=== PATIENT | male | born 1970 | race Caucasian/White ===

== ENCOUNTER 2022-08-29 17:51 | Inpatient (IN) | payer OTHER ==
[~2022-08-29] VITALS: Ht 185.4 cm; Wt 86.2 kg
[2022-08-29] MEDS ORDERED: LISINOPRIL2.5 MG PO (19:39)
[2022-08-29] MEDS ORDERED: ROSUVASTATIN CA10 MG PO (19:39)
[2022-08-29] MEDS ORDERED: TRESIBA FL200 UNIT/1 SQ (19:39)
[2022-08-29] MEDS ORDERED: FARXIGA10 MG PO (19:39)
[2022-08-29 20:08] VITALS: BP 123/85; PULSE 99; RESP 20; TEMP 98.5; O2SAT 100
[2022-08-29] MEDS ORDERED: BISMUTH SUBSALICYLATE 262 MG TAB PO SCH (21:00)
[2022-08-29 21:01] VITALS: BP 123/85; PULSE 91; RESP 20; TEMP 98.5; O2SAT 100
[2022-08-29] MEDS: HYDROCODONE/APAP 5MG-325MG TAB PO PRN (21:08)
[2022-08-30] MEDS ORDERED: SODIUM CHLORIDE 0.9% 250ML 250 ML ONE (00:18)
[2022-08-30 01:08] VITALS: BP 138/83; PULSE 98; RESP 20; TEMP 98.2; O2SAT 95
[2022-08-30 04:55] LABS: BASOPHILS # (AUTO) 0.1 (0.0-0.1); BASOPHILS % 1.1 % (0.0-1.0); EOSINOPHILS # (AUTO) 0.1 (0.0-0.4); EOSINOPHILS % 1.6 % (0.0-6.0); HEMATOCRIT 39.6 % (38.2-49.6); HEMOGLOBIN 12.4 g/dL (14.0-18.0); LYMPHOCYTES # (AUTO) 2.2 (1.0-3.2); LYMPHOCYTES % 39.7 % (18.0-39.1); MEAN CORPUSCULAR HEMOGLOBIN 28.9 pg (28-32); MEAN CORPUSCULAR HGB CONC 31.3 g/dL (31-35); MEAN CORPUSCULAR VOLUME 92.3 fL (81-99); MONOCYTES # (AUTO) 0.6 (0.2-0.8); MONOCYTES % 9.9 % (4.4-11.3); NEUTROPHILS # (AUTO) 2.6 (2.1-6.9); NEUTROPHILS % 46.1 % (38.7-80.0); PLATELET COUNT 248 x10e3/uL (140-360); RED BLOOD COUNT 4.29 x10e6/uL (4.3-5.7); RED CELL DISTRIBUTION WIDTH 12.6 % (11.7-14.4)
[2022-08-30 04:58] VITALS: BP 117/83; PULSE 93; RESP 20; TEMP 98; O2SAT 99
[2022-08-30 05:17] LABS: ALBUMIN 3.1 g/dL (3.5-5.0); ALBUMIN/GLOBULIN RATIO 0.7 (0.8-2.0); ANION GAP 20.5 mmol/L (8-16); CALCIUM 9.5 mg/dL (8.4-10.2); CREATININE, SERUM 1.22 mg/dL (0.72-1.25); POTASSIUM 4.5 mmol/L (3.5-5.1)
[2022-08-30] MEDS ORDERED: NEOSTIGMINE 1 MG/ML 10ML VIAL ONE (06:50)
[2022-08-30] MEDS ORDERED: DEXAMETHASONE SOD PHOS INJ 4 MG/ML SDV ONE (06:50)
[2022-08-30] MEDS ORDERED: BUPIVACAINE HCL 0.5% INJ 30 ML VIAL INJ ONE (06:50)
[2022-08-30] MEDS ORDERED: ACETAMINOPHEN 1000 MG/100 ML 100 ML IV ONE (07:13)
[2022-08-30 08:00] VITALS: BP_SYST 113; BP_SYST 117; BP_DIAS 75; BP_DIAS 83; PULSE 86; PULSE 93; RESP 18; RESP 20; TEMP 98; TEMP 98.5; O2SAT 98; O2SAT 99
[2022-08-30] MEDS ORDERED: BISMUTH SUBSALICYLATE 262 MG/15 ML 8OZ BTL PO PRN (08:15)
[2022-08-30] MEDS ORDERED: DEXTROSE 50% SYRINGE 50 ML IV PRN (09:45)
[2022-08-30] MEDS ORDERED: KETOROLAC TROMETHAMINE 30 MG/ML VIAL ONE (11:49)
[2022-08-30] MEDS ORDERED: SEVOFLURANE INHAL SOLN 250 ML PEN BTL ONE (11:49)
[2022-08-30] MEDS ORDERED: POVIDONE IODINE 0.05% 0.05 % ML PO ONE (11:49)
[2022-08-30] MEDS ORDERED: ONDANSETRON HCL INJ 2MG/ML 2ML 2 MG/ML VIAL ONE (11:49)
[2022-08-30] MEDS ORDERED: PROPOFOL IV EMULSION 10 MG/ML 20 ML VIAL ONE (11:49)
[2022-08-30] MEDS ORDERED: LIDOCAINE HCL 2% LOCAL INJ 5 ML SDV VIAL INJ ONE (11:49)
[2022-08-30 11:56] VITALS: BP 102/70; PULSE 92; RESP 16; TEMP 97.8; O2SAT 97
[2022-08-30] MEDS: HYDROCODONE/APAP 5MG-325MG TAB PO PRN ×2 (12:53→21:10)
[2022-08-30] MEDS: INSULIN LISPRO 100 UNIT/1 ML 3ML VIAL SQ SCH ×3 (12:55→22:33)
[2022-08-30] MEDS ORDERED: FENTANYL CITRATE/PF 100MCG/2 ML INJ ONE (12:56)
[2022-08-30 17:22] VITALS: BP 120/78; PULSE 93; RESP 16; TEMP 98.2; O2SAT 99
[2022-08-30 20:50] VITALS: BP 120/78; PULSE 93; RESP 16; TEMP 98.2; O2SAT 99
[2022-08-30] MEDS: CRESTOR 10MG PO SCH (21:00)
[2022-08-30] MEDS: LISINOPRIL 2.5 MG TAB PO SCH (21:00)
[2022-08-31] VITALS (8 sets, daily range): BP systolic 110–125; BP diastolic 75–83; PULSE 93–98; RESP 16–20; TEMP 98–99.2; O2SAT 95–100
[2022-08-31] MEDS: INSULIN LISPRO 100 UNIT/1 ML 3ML VIAL SQ SCH ×4 (09:32→22:17)
[2022-08-31] MEDS: CEFTRIAXONE 2 GM in SODIUM CHLORIDE 0.9% 100 ML IV SCH (11:50)
[2022-08-31] MEDS: HYDROCODONE/APAP 5MG-325MG TAB PO PRN (12:16)
[2022-08-31] MEDS: CRESTOR 10MG PO SCH (21:00)
[2022-08-31] MEDS: LISINOPRIL 2.5 MG TAB PO SCH (21:00)
[2022-09-01] VITALS (9 sets, daily range): BP systolic 113–130; BP diastolic 75–95; PULSE 59–103; RESP 17–20; TEMP 97.6–98.7; O2SAT 98–100
[2022-09-01] MEDS: CEFTRIAXONE 2 GM in SODIUM CHLORIDE 0.9% 100 ML IV SCH (09:25)
[2022-09-01] MEDS: INSULIN LISPRO 100 UNIT/1 ML 3ML VIAL SQ SCH ×4 (09:30→21:12)
[2022-09-01] MEDS: Ampicillin INJ 2 GM in SODIUM CHLORIDE 0.9% 100 ML IV SCH ×2 (17:19→21:03)
[2022-09-01] MEDS ORDERED: SODIUM CHLORIDE 0.9% 100 ML ONE (20:48)
[2022-09-01] MEDS: LISINOPRIL 2.5 MG TAB PO SCH (21:00)
[2022-09-01] MEDS: CRESTOR 10MG PO SCH (21:00)
[2022-09-02] VITALS (8 sets, daily range): BP systolic 109–126; BP diastolic 78–86; PULSE 88–102; RESP 17–22; TEMP 97.3–98.7; O2SAT 93–100
[2022-09-02] MEDS: Ampicillin INJ 2 GM in SODIUM CHLORIDE 0.9% 100 ML IV SCH ×4 (03:26→21:07)
[2022-09-02] MEDS: INSULIN LISPRO 100 UNIT/1 ML 3ML VIAL SQ SCH ×4 (08:40→20:58)
[2022-09-02] MEDS: HYDROCODONE/APAP 5MG-325MG TAB PO PRN (08:51)
[2022-09-02] MEDS: CRESTOR 10MG PO SCH (20:52)
[2022-09-02] MEDS: LISINOPRIL 2.5 MG TAB PO SCH (20:53)
[2022-09-02] MEDS ORDERED: INSULIN GLARGINE 100 UNITS/ML VIAL SQ SCH (21:00)
[2022-09-02] MEDS: ZOLPIDEM TARTRATE 10 MG TAB PO PRN (21:05)
[2022-09-03] VITALS (9 sets, daily range): BP systolic 111–130; BP diastolic 75–83; PULSE 83–90; RESP 17–18; TEMP 97–98.5; O2SAT 96–99
[2022-09-03] MEDS: Ampicillin INJ 2 GM in SODIUM CHLORIDE 0.9% 100 ML IV SCH ×4 (05:21→20:10)
[2022-09-03 06:01] LABS: BASOPHILS # (AUTO) 0.1 (0.0-0.1); BASOPHILS % 0.9 % (0.0-1.0); EOSINOPHILS # (AUTO) 0.1 (0.0-0.4); EOSINOPHILS % 1.8 % (0.0-6.0); HEMATOCRIT 37.2 % (38.2-49.6); HEMOGLOBIN 12.2 g/dL (14.0-18.0); LYMPHOCYTES # (AUTO) 2.6 (1.0-3.2); LYMPHOCYTES % 37.9 % (18.0-39.1); MEAN CORPUSCULAR HEMOGLOBIN 29.5 pg (28-32); MEAN CORPUSCULAR HGB CONC 32.8 g/dL (31-35); MEAN CORPUSCULAR VOLUME 90.1 fL (81-99); MONOCYTES # (AUTO) 0.6 (0.2-0.8); MONOCYTES % 8.6 % (4.4-11.3); NEUTROPHILS # (AUTO) 3.4 (2.1-6.9); NEUTROPHILS % 50.5 % (38.7-80.0); PLATELET COUNT 231 x10e3/uL (140-360); RED BLOOD COUNT 4.13 x10e6/uL (4.3-5.7); RED CELL DISTRIBUTION WIDTH 12.7 % (11.7-14.4)
[2022-09-03 06:19] LABS: ANION GAP 15.1 mmol/L (8-16); CALCIUM 9.1 mg/dL (8.4-10.2); CREATININE, SERUM 0.82 mg/dL (0.72-1.25); POTASSIUM 4.1 mmol/L (3.5-5.1)
[2022-09-03] MEDS: CEFTRIAXONE 2 GM in SODIUM CHLORIDE 0.9% 100 ML IV SCH (08:07)
[2022-09-03] MEDS: INSULIN LISPRO 100 UNIT/1 ML 3ML VIAL SQ SCH ×4 (08:14→20:15)
[2022-09-03] MEDS: LISINOPRIL 2.5 MG TAB PO SCH (20:11)
[2022-09-03] MEDS: CRESTOR 10MG PO SCH (20:11)
[2022-09-03] MEDS: INSULIN GLARGINE 100 UNITS/ML VIAL SQ SCH (20:17)
[2022-09-03] MEDS: ZOLPIDEM TARTRATE 10 MG TAB PO PRN (23:07)
[2022-09-04] VITALS (8 sets, daily range): BP systolic 111–125; BP diastolic 74–86; PULSE 75–86; RESP 16–18; TEMP 97.9–98.4; O2SAT 96–100
[2022-09-04] MEDS: Ampicillin INJ 2 GM in SODIUM CHLORIDE 0.9% 100 ML IV SCH ×4 (03:47→21:17)
[2022-09-04] MEDS: CEFTRIAXONE 2 GM in SODIUM CHLORIDE 0.9% 100 ML IV SCH (07:58)
[2022-09-04] MEDS: INSULIN LISPRO 100 UNIT/1 ML 3ML VIAL SQ SCH ×4 (08:05→22:04)
[2022-09-04] MEDS: CRESTOR 10MG PO SCH (21:17)
[2022-09-04] MEDS: LISINOPRIL 2.5 MG TAB PO SCH (21:18)
[2022-09-04] MEDS: INSULIN GLARGINE 100 UNITS/ML VIAL SQ SCH (22:04)
[2022-09-04] MEDS: ZOLPIDEM TARTRATE 10 MG TAB PO PRN (22:10)
[2022-09-05] VITALS: BP 111/73; PULSE 84; RESP 18; TEMP 98.6; O2SAT 100
[2022-09-05] MEDS: Ampicillin INJ 2 GM in SODIUM CHLORIDE 0.9% 100 ML IV SCH ×4 (03:13→22:18)
[2022-09-05 04:00] VITALS: BP 128/84; PULSE 87; RESP 17; TEMP 98.2; O2SAT 100
[2022-09-05] MEDS: INSULIN LISPRO 100 UNIT/1 ML 3ML VIAL SQ SCH ×4 (07:30→22:27)
[2022-09-05] MEDS: CEFTRIAXONE 2 GM in SODIUM CHLORIDE 0.9% 100 ML IV SCH (09:15)
[2022-09-05 09:21] VITALS: BP 114/80; PULSE 85; RESP 16; TEMP 98.4; O2SAT 97
[2022-09-05] MEDS: HYDROCODONE/APAP 5MG-325MG TAB PO PRN (10:37)
[2022-09-05 12:03] VITALS: BP 108/78; PULSE 76; RESP 20; TEMP 98.8; O2SAT 99
[2022-09-05 16:40] VITALS: BP 115/85; PULSE 84; RESP 18; TEMP 97.9; O2SAT 99
[2022-09-05 20:00] VITALS: BP 113/74; PULSE 74; RESP 17; TEMP 98.2; O2SAT 100
[2022-09-05] MEDS: LISINOPRIL 2.5 MG TAB PO SCH (22:16)
[2022-09-05] MEDS: CRESTOR 10MG PO SCH (22:17)
[2022-09-05] MEDS: INSULIN GLARGINE 100 UNITS/ML VIAL SQ SCH (22:28)
[2022-09-05] MEDS: ZOLPIDEM TARTRATE 10 MG TAB PO PRN (22:33)
[2022-09-05] MEDS ORDERED: HYDROCODONE/APAP 5MG-325MG TAB PO PRN (23:45)
[2022-09-06] VITALS: BP 110/80; PULSE 89; RESP 17; TEMP 98.9; O2SAT 100
[2022-09-06] MEDS: Ampicillin INJ 2 GM in SODIUM CHLORIDE 0.9% 100 ML IV SCH ×3 (02:39→14:51)
[2022-09-06 04:00] VITALS: BP 115/78; PULSE 77; RESP 17; TEMP 98.3; O2SAT 98
[2022-09-06] MEDS ORDERED: SODIUM CHLORIDE 0.9% 100 ML ONE (07:32)
[2022-09-06 08:18] VITALS: BP 110/75; PULSE 79; RESP 23; TEMP 97.9; O2SAT 100
[2022-09-06] MEDS: CEFTRIAXONE 2 GM in SODIUM CHLORIDE 0.9% 100 ML IV SCH (08:38)
[2022-09-06] MEDS: INSULIN LISPRO 100 UNIT/1 ML 3ML VIAL SQ SCH ×3 (08:51→16:54)
[2022-09-06 09:00] VITALS: BP 110/75; PULSE 79; RESP 23; TEMP 97.9; O2SAT 100
[2022-09-06 12:07] VITALS: BP 116/77; PULSE 77; RESP 23; TEMP 98; O2SAT 100
[2022-09-06 16:00] VITALS: BP 108/80; PULSE 76; RESP 22; TEMP 98.4; O2SAT 97
[2022-09-06] MEDS ORDERED: AMOXICILLIN500 MG PO (16:18)
== END 2022-09-06 17:59 | disposition home or self-care (01) | DRG 504 ==
LOC: MED/SURG2 17:51
PROVIDERS: ADMIT Internal Medicine; ATTEND Internal Medicine
PROC: 0SBN0ZZ Excision of Left Metatarsal-Phalangeal Joint, Open Approach (ICD-10-PCS; 2022-08-30)
PROC: 02HV33Z Insertion of Infusion Device into Superior Vena Cava, Percutaneous Approach (ICD-10-PCS; principal; 2022-08-30 07:30)
DX: M86.9 Osteomyelitis, unspecified (principal); E11.52 Type 2 diabetes mellitus with diabetic peripheral angiopathy with gangrene; I96 Gangrene, not elsewhere classified; E11.69 Type 2 diabetes mellitus with other specified complication; B95.2 Enterococcus as the cause of diseases classified elsewhere; I10 Essential (primary) hypertension; E11.40 Type 2 diabetes mellitus with diabetic neuropathy, unspecified; E78.5 Hyperlipidemia, unspecified
CPT/HCPCS: 36415; 36569; 71045; 71046; 80048; 80053; 82948; 85025; 87071; 87075; 87186; 87205; 88304; 93005; 96372; 97605; 99252; J0690; J0696; J1100; J1815; J1885; J2001; J2405; J2543; J2710; J7050

== ENCOUNTER 2022-09-22 15:18 | Inpatient (IN) | payer OTHER ==
[~2022-09-22] VITALS: Ht 185.4 cm; Wt 99.8 kg
[2022-09-22] VITALS (14 sets, daily range): BP systolic 100–129; BP diastolic 63–77; PULSE 95–110; RESP 9–16; TEMP 98.5; O2SAT 84–100
[~2022-09-22 15:18] MED LIST: AMOXICILLIN500 MG PO; FARXIGA10 MG PO; LISINOPRIL2.5 MG PO; ROSUVASTATIN CA10 MG PO; TRESIBA FL200 UNIT/1 SQ
[2022-09-22] MEDS ORDERED: ONDANSETRON HCL INJ 2MG/ML 2ML 2 MG/ML VIAL IV PRN (18:30)
[2022-09-22] MEDS ORDERED: MAGNESIUM SULF 1GRAM/DEXTROSE 100 ML IV PRN (18:45)
[2022-09-22] MEDS: SODIUM CHLORIDE 0.9% 1000ML 1,000 ML IV SCH ×2 (18:45→22:45)
[2022-09-22] MEDS ORDERED: ACETAMINOPHEN 325 MG TAB PO PRN (18:45)
[2022-09-22] MEDS: INSULIN REGULAR, HUMAN 3ML VL 100 UNIT in SODIUM CHLORIDE 0.9% 100 ML IV SCH ×2 (19:00)
[2022-09-22 19:44] LABS: ALBUMIN 3.3 g/dL (3.5-5.0); ALBUMIN/GLOBULIN RATIO 0.9 (0.8-2.0); ANION GAP 25.2 mmol/L (8-16); CALCIUM 8.7 mg/dL (8.4-10.2); CREATININE, SERUM 1.46 mg/dL (0.72-1.25); POTASSIUM 4.2 mmol/L (3.5-5.1)
[2022-09-22] MEDS: DEXTROSE 5%/0.45% SOD CHL 1,000 ML IV SCH (20:30)
[2022-09-22] MEDS: CEFTRIAXONE 2 GM in SODIUM CHLORIDE 0.9% 100 ML IV SCH (20:43)
[2022-09-22 23:09] LABS: ANION GAP 17.7 mmol/L (8-16); CALCIUM 8.5 mg/dL (8.4-10.2); CREATININE, SERUM 1.5 mg/dL (0.72-1.25); MAGNESIUM 2.1 MG/DL (1.3-2.1); POTASSIUM 3.7 mmol/L (3.5-5.1)
[2022-09-23] VITALS (30 sets, daily range): BP systolic 100–125; BP diastolic 58–83; PULSE 73–95; RESP 6–18; TEMP 97.7–98.2; O2SAT 97–100
[2022-09-23] MEDS ORDERED: LIDOCAINE 4% PATCH TP PRN (00:15)
[2022-09-23] MEDS ORDERED: DOCUSATE SODIUM 100 MG CAP PO PRN (00:15)
[2022-09-23] MEDS ORDERED: DIPHENHYDRAMINE HCL 25 MG CAP PO PRN (00:15)
[2022-09-23] MEDS ORDERED: POTASSIUM CHLORIDE 20 MEQ TAB CR PO PRN (00:15)
[2022-09-23] MEDS ORDERED: BENZONATATE 100 MG CAP PO PRN (00:15)
[2022-09-23] MEDS ORDERED: SIMETHICONE 80 MG CHEW PO PRN (00:15)
[2022-09-23] MEDS ORDERED: HYDRALAZINE HCL 20 MG/ML VIAL IV PRN (00:15)
[2022-09-23] MEDS ORDERED: ALBUTEROL/IPRATROPIUM 3 ML NEB NEB PRN (00:15)
[2022-09-23] MEDS ORDERED: DEXTROSE 50% SYRINGE 50 ML IV PRN (00:15)
[2022-09-23] MEDS: INSULIN REGULAR, HUMAN 3ML VL 100 UNIT in SODIUM CHLORIDE 0.9% 100 ML IV SCH ×4 (00:56→19:27)
[2022-09-23] MEDS: SODIUM CHLORIDE 0.9% 1000ML 1,000 ML IV SCH ×6 (02:45→21:59)
[2022-09-23 03:08] LABS: ANION GAP 13.1 mmol/L (8-16); CALCIUM 7.5 mg/dL (8.4-10.2); CREATININE, SERUM 1.29 mg/dL (0.72-1.25); MAGNESIUM 1.8 MG/DL (1.3-2.1); POTASSIUM 3.1 mmol/L (3.5-5.1)
[2022-09-23 03:53] LABS: ANION GAP 13.3 mmol/L (8-16); CALCIUM 8.5 mg/dL (8.4-10.2); CREATININE, SERUM 1.27 mg/dL (0.72-1.25); POTASSIUM 3.3 mmol/L (3.5-5.1)
[2022-09-23] MEDS: DEXTROSE 5%/0.45% SOD CHL 1,000 ML IV SCH ×5 (04:45→23:39)
[2022-09-23] MEDS ORDERED: HYDROCODONE/APAP 7.5MG-325MG 1 EA TAB PO PRN (06:00)
[2022-09-23] MEDS: HYDROCODONE/APAP 7.5MG-325MG 1 EA TAB PO PRN (06:06)
[2022-09-23 07:04] LABS: CHOL/HDL RATIO 10.9 (3.9-4.7); MAGNESIUM 1.8 MG/DL (1.3-2.1); PHOSPHORUS 1.2 MG/DL (2.3-4.7)
[2022-09-23 07:05] LABS: ANION GAP 13.3 mmol/L (8-16); CALCIUM 8.5 mg/dL (8.4-10.2); CREATININE, SERUM 1.13 mg/dL (0.72-1.25); MAGNESIUM 1.9 MG/DL (1.3-2.1); POTASSIUM 3.3 mmol/L (3.5-5.1)
[2022-09-23 07:29] LABS: THYROID STIMULATING HORMONE 3.504 uIU/mL (0.350-4.940)
[2022-09-23] MEDS: CEFTRIAXONE 2 GM in SODIUM CHLORIDE 0.9% 100 ML IV SCH (08:02)
[2022-09-23] MEDS: PANTOPRAZOLE SOD 40 MG TABEC PO SCH (08:02)
[2022-09-23] MEDS ORDERED: CEFTRIAXONE 2 GM in SODIUM CHLORIDE 0.9% 100 ML IV SCH (09:00)
[2022-09-23] MEDS: POTASSIUM CHLORIDE 20MEQ/100ML 100 ML IV PRN ×3 (09:08→21:03)
[2022-09-23 12:45] LABS: ANION GAP 11.6 mmol/L (8-16); CALCIUM 8.4 mg/dL (8.4-10.2); CREATININE, SERUM 1.03 mg/dL (0.72-1.25); MAGNESIUM 1.8 MG/DL (1.3-2.1); POTASSIUM 3.6 mmol/L (3.5-5.1)
[2022-09-23 13:16] LABS: BASOPHILS % 0.2 % (0.0-1.0); EOSINOPHILS # (AUTO) 0.5 (0.0-0.4); EOSINOPHILS % 7.8 % (0.0-6.0); HEMATOCRIT 37.1 % (38.2-49.6); HEMOGLOBIN 12.3 g/dL (14.0-18.0); LYMPHOCYTES # (AUTO) 1.2 (1.0-3.2); LYMPHOCYTES % 20.7 % (18.0-39.1); MEAN CORPUSCULAR HEMOGLOBIN 29.6 pg (28-32); MEAN CORPUSCULAR HGB CONC 33.2 g/dL (31-35); MEAN CORPUSCULAR VOLUME 89.2 fL (81-99); MONOCYTES # (AUTO) 0.7 (0.2-0.8); MONOCYTES % 12.5 % (4.4-11.3); NEUTROPHILS # (AUTO) 3.5 (2.1-6.9); NEUTROPHILS % 58.6 % (38.7-80.0); PLATELET COUNT 145 x10e3/uL (140-360); RED BLOOD COUNT 4.16 x10e6/uL (4.3-5.7); RED CELL DISTRIBUTION WIDTH 14.6 % (11.7-14.4)
[2022-09-23] MEDS: ONDANSETRON HCL INJ 2MG/ML 2ML 2 MG/ML VIAL IV PRN (14:35)
[2022-09-23 16:31] LABS: ANION GAP 11.4 mmol/L (8-16); CALCIUM 8.4 mg/dL (8.4-10.2); CREATININE, SERUM 0.9 mg/dL (0.72-1.25); MAGNESIUM 1.9 MG/DL (1.3-2.1); POTASSIUM 3.4 mmol/L (3.5-5.1)
[2022-09-23] MEDS: ENOXAPARIN SOD INJ 40 MG/0.4 ML SYR SC SCH (16:40)
[2022-09-23 20:47] LABS: ANION GAP 11.3 mmol/L (8-16); CALCIUM 8.3 mg/dL (8.4-10.2); CREATININE, SERUM 0.82 mg/dL (0.72-1.25); MAGNESIUM 1.8 MG/DL (1.3-2.1); POTASSIUM 3.3 mmol/L (3.5-5.1)
[2022-09-24] VITALS (28 sets, daily range): BP systolic 110–143; BP diastolic 62–100; PULSE 71–86; RESP 7–18; TEMP 98.4–98.7; O2SAT 95–100
[2022-09-24 00:15] LABS: BASOPHILS % 0.2 % (0.0-1.0); EOSINOPHILS # (AUTO) 0.3 (0.0-0.4); EOSINOPHILS % 6.1 % (0.0-6.0); HEMATOCRIT 34.9 % (38.2-49.6); LYMPHOCYTES # (AUTO) 1.3 (1.0-3.2); LYMPHOCYTES % 24.1 % (18.0-39.1); MEAN CORPUSCULAR HEMOGLOBIN 29.5 pg (28-32); MEAN CORPUSCULAR HGB CONC 34.4 g/dL (31-35); MONOCYTES # (AUTO) 0.7 (0.2-0.8); MONOCYTES % 14.1 % (4.4-11.3); NEUTROPHILS # (AUTO) 2.9 (2.1-6.9); NEUTROPHILS % 55.1 % (38.7-80.0); PLATELET COUNT 127 x10e3/uL (140-360); RED BLOOD COUNT 4.07 x10e6/uL (4.3-5.7); RED CELL DISTRIBUTION WIDTH 13.8 % (11.7-14.4)
[2022-09-24 00:29] LABS: MEAN CORPUSCULAR VOLUME 85.7 fL (81-99)
[2022-09-24 00:30] LABS: ANION GAP 7.3 mmol/L (8-16); CALCIUM 8.5 mg/dL (8.4-10.2); CREATININE, SERUM 0.79 mg/dL (0.72-1.25); MAGNESIUM 2.2 MG/DL (1.3-2.1); POTASSIUM 3.3 mmol/L (3.5-5.1)
[2022-09-24] MEDS: ZOLPIDEM TARTRATE 5 MG TAB PO PRN (02:07)
[2022-09-24] MEDS: SODIUM CHLORIDE 0.9% 1000ML 1,000 ML IV SCH ×7 (02:45→22:37)
[2022-09-24] MEDS: DEXTROSE 5%/0.45% SOD CHL 1,000 ML IV SCH ×4 (03:50→22:37)
[2022-09-24 04:50] LABS: CALCIUM 8.3 mg/dL (8.4-10.2); CREATININE, SERUM 0.75 mg/dL (0.72-1.25); MAGNESIUM 1.8 MG/DL (1.3-2.1)
[2022-09-24] MEDS: POTASSIUM CHLORIDE 20MEQ/100ML 100 ML IV PRN ×5 (05:04→16:35)
[2022-09-24] MEDS: HYDROCODONE/APAP 7.5MG-325MG 1 EA TAB PO PRN (06:27)
[2022-09-24] MEDS: PANTOPRAZOLE SOD 40 MG TABEC PO SCH (07:47)
[2022-09-24] MEDS: CEFTRIAXONE 2 GM in SODIUM CHLORIDE 0.9% 100 ML IV SCH (08:23)
[2022-09-24 09:18] LABS: ANION GAP 9.1 mmol/L (8-16); CALCIUM 8.1 mg/dL (8.4-10.2); CREATININE, SERUM 0.68 mg/dL (0.72-1.25); MAGNESIUM 1.6 MG/DL (1.3-2.1); POTASSIUM 3.1 mmol/L (3.5-5.1)
[2022-09-24] MEDS: ONDANSETRON HCL INJ 2MG/ML 2ML 2 MG/ML VIAL IV PRN (10:19)
[2022-09-24 11:40] LABS: ANION GAP 11.3 mmol/L (8-16); CALCIUM 8.2 mg/dL (8.4-10.2); CREATININE, SERUM 0.7 mg/dL (0.72-1.25); MAGNESIUM 1.6 MG/DL (1.3-2.1); POTASSIUM 3.3 mmol/L (3.5-5.1)
[2022-09-24 16:01] LABS: ANION GAP 10.4 mmol/L (8-16); CALCIUM 8.1 mg/dL (8.4-10.2); CREATININE, SERUM 0.71 mg/dL (0.72-1.25); MAGNESIUM 1.5 MG/DL (1.3-2.1); POTASSIUM 3.4 mmol/L (3.5-5.1)
[2022-09-24] MEDS: ENOXAPARIN SOD INJ 40 MG/0.4 ML SYR SC SCH (16:35)
[2022-09-24 20:44] LABS: ANION GAP 10.5 mmol/L (8-16); CALCIUM 7.9 mg/dL (8.4-10.2); CREATININE, SERUM 0.69 mg/dL (0.72-1.25); MAGNESIUM 1.5 MG/DL (1.3-2.1); POTASSIUM 3.5 mmol/L (3.5-5.1)
[2022-09-24] MEDS ORDERED: CRESTOR10 MG PO (22:56)
[2022-09-24] MEDS ORDERED: LISINOPRIL2.5 MG PO (22:56)
[2022-09-25] VITALS (29 sets, daily range): BP systolic 126–145; BP diastolic 70–113; PULSE 71–90; RESP 8–23; TEMP 97.2–97.6; O2SAT 99–100
[2022-09-25] MEDS: ZOLPIDEM TARTRATE 5 MG TAB PO PRN (00:02)
[2022-09-25 00:33] LABS: ANION GAP 8.4 mmol/L (8-16); CREATININE, SERUM 0.69 mg/dL (0.72-1.25); MAGNESIUM 1.5 MG/DL (1.3-2.1); POTASSIUM 3.4 mmol/L (3.5-5.1)
[2022-09-25] MEDS: DEXTROSE 5%/0.45% SOD CHL 1,000 ML IV SCH ×5 (01:15→20:30)
[2022-09-25] MEDS: INSULIN REGULAR, HUMAN 3ML VL 100 UNIT in SODIUM CHLORIDE 0.9% 100 ML IV SCH ×4 (03:08→17:57)
[2022-09-25 04:37] LABS: ANION GAP 10.6 mmol/L (8-16); CALCIUM 8.3 mg/dL (8.4-10.2); CREATININE, SERUM 0.67 mg/dL (0.72-1.25); MAGNESIUM 1.5 MG/DL (1.3-2.1); POTASSIUM 3.6 mmol/L (3.5-5.1)
[2022-09-25] MEDS: SODIUM CHLORIDE 0.9% 1000ML 1,000 ML IV SCH ×5 (06:02→22:45)
[2022-09-25] MEDS: ACETAMINOPHEN 325 MG TAB PO PRN (07:35)
[2022-09-25] MEDS: PANTOPRAZOLE SOD 40 MG TABEC PO SCH (08:02)
[2022-09-25] MEDS: CEFTRIAXONE 2 GM in SODIUM CHLORIDE 0.9% 100 ML IV SCH (08:02)
[2022-09-25 09:54] LABS: ANION GAP 10.2 mmol/L (8-16); BLOOD UREA NITROGEN < 5 mg/dL (7-26); CALCIUM 8.1 mg/dL (8.4-10.2); CARBON DIOXIDE 18 mmol/L (22-29); CHLORIDE 116 mmol/L (98-107); CREATININE, SERUM 0.59 mg/dL (0.72-1.25); GLUCOSE 105 mg/dL (74-118); MAGNESIUM 1.3 MG/DL (1.3-2.1); POTASSIUM 3.2 mmol/L (3.5-5.1); SODIUM 141 mmol/L (136-145)
[2022-09-25 09:58] LABS: BUN/CREATININE RATIO 8 (6-25)
[2022-09-25] MEDS ORDERED: POTASSIUM CHLORIDE 20MEQ/100ML 100 ML IV ONE (11:15)
[2022-09-25 13:29] LABS: ANION GAP 10.6 mmol/L (8-16); BLOOD UREA NITROGEN < 5 mg/dL (7-26); CALCIUM 8.1 mg/dL (8.4-10.2); CARBON DIOXIDE 18 mmol/L (22-29); CHLORIDE 115 mmol/L (98-107); CREATININE, SERUM 0.61 mg/dL (0.72-1.25); GLUCOSE 104 mg/dL (74-118); MAGNESIUM 1.4 MG/DL (1.3-2.1); POTASSIUM 3.6 mmol/L (3.5-5.1); SODIUM 140 mmol/L (136-145)
[2022-09-25 13:31] LABS: BUN/CREATININE RATIO 8 (6-25)
[2022-09-25] MEDS: HYDROCODONE/APAP 7.5MG-325MG 1 EA TAB PO PRN (13:39)
[2022-09-25 16:44] LABS: ANION GAP 9.5 mmol/L (8-16); CREATININE, SERUM 0.63 mg/dL (0.72-1.25); MAGNESIUM 1.4 MG/DL (1.3-2.1); POTASSIUM 3.5 mmol/L (3.5-5.1)
[2022-09-25] MEDS: ENOXAPARIN SOD INJ 40 MG/0.4 ML SYR SC SCH (17:33)
[2022-09-25 20:43] LABS: FREE T4 (FREE THYROXINE) 0.75 ng/dL (0.8-1.8); THYROID STIMULATING HORMONE 4.983 uIU/mL (0.350-4.940)
[2022-09-25] MEDS: INSULIN LISPRO 100 UNIT/1 ML 3ML VIAL SQ SCH (20:45)
[2022-09-25] MEDS ORDERED: INSULIN GLARGINE 100 UNITS/ML VIAL SQ SCH (21:00)
[2022-09-26] VITALS (23 sets, daily range): BP systolic 82–165; BP diastolic 58–111; PULSE 69–85; RESP 10–19; TEMP 97.7–98.5; O2SAT 94–100
[2022-09-26] MEDS ORDERED: DEXTROSE 50% SYRINGE 50 ML IV PRN (00:30)
[2022-09-26] MEDS ORDERED: INSULIN REGULAR, HUMAN 3ML VL 100 UNIT in SODIUM CHLORIDE 0.45% 100 ML 100 ML IV SCH ×2 (00:30)
[2022-09-26] MEDS: DEXTROSE 5%/0.45% SOD CHL 1,000 ML IV SCH ×2 (02:13→12:03)
[2022-09-26] MEDS: SODIUM CHLORIDE 0.9% 1000ML 1,000 ML IV SCH ×4 (02:45→12:26)
[2022-09-26 04:58] LABS: BASOPHILS % 0.5 % (0.0-1.0); EOSINOPHILS # (AUTO) 0.5 (0.0-0.4); EOSINOPHILS % 10.9 % (0.0-6.0); HEMATOCRIT 32.7 % (38.2-49.6); HEMOGLOBIN 10.8 g/dL (14.0-18.0); LYMPHOCYTES # (AUTO) 1.5 (1.0-3.2); LYMPHOCYTES % 34.4 % (18.0-39.1); MEAN CORPUSCULAR HEMOGLOBIN 29.3 pg (28-32); MEAN CORPUSCULAR VOLUME 88.9 fL (81-99); MONOCYTES # (AUTO) 0.5 (0.2-0.8); MONOCYTES % 12.3 % (4.4-11.3); NEUTROPHILS # (AUTO) 1.8 (2.1-6.9); NEUTROPHILS % 41.4 % (38.7-80.0); PLATELET COUNT 93 x10e3/uL (140-360); RED BLOOD COUNT 3.68 x10e6/uL (4.3-5.7); RED CELL DISTRIBUTION WIDTH 13.4 % (11.7-14.4)
[2022-09-26 05:20] LABS: ANION GAP 11.7 mmol/L (8-16); CREATININE, SERUM 0.66 mg/dL (0.72-1.25); MAGNESIUM 1.4 MG/DL (1.3-2.1); POTASSIUM 3.7 mmol/L (3.5-5.1)
[2022-09-26] MEDS: INSULIN LISPRO 100 UNIT/1 ML 3ML VIAL SQ SCH ×5 (07:30→22:00)
[2022-09-26] MEDS: PANTOPRAZOLE SOD 40 MG TABEC PO SCH (09:03)
[2022-09-26] MEDS: CEFTRIAXONE 2 GM in SODIUM CHLORIDE 0.9% 100 ML IV SCH (09:03)
[2022-09-26] MEDS ORDERED: INSULIN REGULAR, HUMAN 3ML VL 100 UNIT in SODIUM CHLORIDE 0.9% 99 ML IV SCH ×2 (11:45)
[2022-09-26] MEDS ORDERED: INSULIN LISPRO 100 UNIT/1 ML 3ML VIAL SQ ONE (14:30)
[2022-09-26] MEDS: ACETAMINOPHEN 325 MG TAB PO PRN ×2 (14:43→22:52)
[2022-09-26] MEDS: ENOXAPARIN SOD INJ 40 MG/0.4 ML SYR SC SCH (16:45)
[2022-09-26] MEDS ORDERED: INSULIN GLARGINE 100 UNITS/ML VIAL SQ SCH (21:00)
[2022-09-26] MEDS: CRESTOR 10MG PO SCH (22:03)
[2022-09-26] MEDS: ZOLPIDEM TARTRATE 5 MG TAB PO PRN (22:49)
[2022-09-27] VITALS (9 sets, daily range): BP systolic 124–146; BP diastolic 81–92; PULSE 66–85; RESP 16–20; TEMP 97.9–98.7; O2SAT 96–100
[2022-09-27] MEDS: DEXTROSE 5%/0.45% SOD CHL 1,000 ML IV SCH ×2 (02:06→11:40)
[2022-09-27] MEDS: INSULIN LISPRO 100 UNIT/1 ML 3ML VIAL SQ SCH ×7 (07:59→21:36)
[2022-09-27] MEDS: HYDROCODONE/APAP 7.5MG-325MG 1 EA TAB PO PRN ×2 (08:02→15:39)
[2022-09-27] MEDS: PANTOPRAZOLE SOD 40 MG TABEC PO SCH (08:03)
[2022-09-27] MEDS: CEFTRIAXONE 2 GM in SODIUM CHLORIDE 0.9% 100 ML IV SCH (08:03)
[2022-09-27] MEDS: ENOXAPARIN SOD INJ 40 MG/0.4 ML SYR SC SCH (16:53)
[2022-09-27] MEDS ORDERED: INSULIN GLARGINE 100 UNITS/ML VIAL SQ SCH (21:00)
[2022-09-27] MEDS: CRESTOR 10MG PO SCH (21:29)
[2022-09-27] MEDS: ACETAMINOPHEN 325 MG TAB PO PRN (23:01)
[2022-09-27] MEDS: ZOLPIDEM TARTRATE 5 MG TAB PO PRN (23:01)
[2022-09-28] VITALS (29 sets, daily range): BP systolic 88–128; BP diastolic 67–110; PULSE 66–99; RESP 11–30; TEMP 98.1–98.6; O2SAT 44–100
[2022-09-28] MEDS: PANTOPRAZOLE SOD 40 MG TABEC PO SCH (08:20)
[2022-09-28] MEDS: CEFTRIAXONE 2 GM in SODIUM CHLORIDE 0.9% 100 ML IV SCH (08:22)
[2022-09-28] MEDS: INSULIN LISPRO 100 UNIT/1 ML 3ML VIAL SQ SCH ×6 (08:56→16:25)
[2022-09-28 09:59] LABS: BASOPHILS # (AUTO) 0.1 (0.0-0.1); EOSINOPHILS # (AUTO) 0.5 (0.0-0.4); HEMATOCRIT 32.8 % (38.2-49.6); HEMOGLOBIN 10.6 g/dL (14.0-18.0); LYMPHOCYTES # (AUTO) 1.7 (1.0-3.2); LYMPHOCYTES % 32.8 % (18.0-39.1); MEAN CORPUSCULAR HEMOGLOBIN 29.5 pg (28-32); MEAN CORPUSCULAR HGB CONC 32.3 g/dL (31-35); MEAN CORPUSCULAR VOLUME 91.4 fL (81-99); MONOCYTES # (AUTO) 0.5 (0.2-0.8); MONOCYTES % 9.7 % (4.4-11.3); NEUTROPHILS # (AUTO) 2.4 (2.1-6.9); NEUTROPHILS % 46.3 % (38.7-80.0); PLATELET COUNT 107 x10e3/uL (140-360); RED BLOOD COUNT 3.59 x10e6/uL (4.3-5.7)
[2022-09-28 10:16] LABS: ANION GAP 9.5 mmol/L (8-16); CALCIUM 8.5 mg/dL (8.4-10.2); CREATININE, SERUM 0.75 mg/dL (0.72-1.25); POTASSIUM 3.5 mmol/L (3.5-5.1)
[2022-09-28] MEDS ORDERED: HEPARIN SOD (PORCINE) 5,000 UNIT/ML VIAL IV ONE (11:15)
[2022-09-28] MEDS: HEPARIN 25,000 UNIT/D5W 250ML 1,500 UNIT in DEXTROSE 5% 250ML 250 ML IV SCH ×2 (12:21→21:27)
[2022-09-28] MEDS ORDERED: HYDROCODONE/APAP 10MG-325MG TAB PO PRN (13:15)
[2022-09-28] MEDS ORDERED: EPINEPHRINE HCL 1:1000 1ML 1 MG/ML AMP ONE (13:50)
[2022-09-28] MEDS ORDERED: EPINEPHRINE HCL SYRINGE ONE (13:50)
[2022-09-28] MEDS ORDERED: AMIODARONE HCL INJ 150MG/3ML ONE (13:50)
[2022-09-28] MEDS ORDERED: SODIUM CHLORIDE 0.9% 1000ML 1,000 ML ONE ×2 (15:19→16:56)
[2022-09-28 15:54] LABS: BASOPHILS # (AUTO) 0.1 (0.0-0.1); BASOPHILS % 0.6 % (0.0-1.0); EOSINOPHILS # (AUTO) 0.6 (0.0-0.4); HEMATOCRIT 29.6 % (38.2-49.6); HEMOGLOBIN 9.7 g/dL (14.0-18.0); LYMPHOCYTES # (AUTO) 2.6 (1.0-3.2); LYMPHOCYTES % 32.1 % (18.0-39.1); MEAN CORPUSCULAR HEMOGLOBIN 29.4 pg (28-32); MEAN CORPUSCULAR HGB CONC 32.8 g/dL (31-35); MEAN CORPUSCULAR VOLUME 89.7 fL (81-99); MONOCYTES # (AUTO) 0.8 (0.2-0.8); MONOCYTES % 10.1 % (4.4-11.3); NEUTROPHILS # (AUTO) 3.9 (2.1-6.9); NEUTROPHILS % 48.8 % (38.7-80.0); PLATELET COUNT 101 x10e3/uL (140-360); RED CELL DISTRIBUTION WIDTH 14.3 % (11.7-14.4)
[2022-09-28] MEDS ORDERED: SODIUM CHLORIDE 0.9% 1000ML 1,000 ML IV ONE (16:00)
[2022-09-28 16:11] LABS: ALBUMIN 2.2 g/dL (3.5-5.0); ALBUMIN/GLOBULIN RATIO 0.8 (0.8-2.0); ANION GAP 12.4 mmol/L (8-16); CREATININE, SERUM 0.92 mg/dL (0.72-1.25); POTASSIUM 3.4 mmol/L (3.5-5.1)
[2022-09-28] MEDS ORDERED: SODIUM CHLORIDE 0.9% 1000ML 1,000 ML IV SCH (16:15)
[2022-09-28] MEDS ORDERED: LIDOCAINE HCL 2% LOCAL 20 ML VIAL ONE (16:55)
[2022-09-28] MEDS ORDERED: HEPARIN SOD (PORCINE) 1000 UNIT/ML 30ML ONE (16:55)
[2022-09-28] MEDS ORDERED: HEPARIN SOD/SOD CHLORIDE 2,000 ML ONE (16:55)
[2022-09-28] MEDS ORDERED: NITROGLYCERIN/D5W 200 MCG/ML 250 ML ONE (16:56)
[2022-09-28] MEDS ORDERED: IOPAMIDOL 370 MG/ML 100 ML INFUS..BTL INJ ONE (16:56)
[2022-09-28] MEDS ORDERED: FENTANYL CITRATE/PF 100MCG/2 ML INJ ONE (17:01)
[2022-09-28] MEDS ORDERED: MIDAZOLAM HCL 2 MG/2 ML VIAL ONE ×2 (17:01→23:33)
[2022-09-28] MEDS ORDERED: VERAPAMIL HCL 2.5 MG/ML 2 ML VIAL ONE (17:07)
[2022-09-28] MEDS ORDERED: NOREPINEPHRINE 8 MG/D5W 250 ML 250 ML IV SCH (17:15)
[2022-09-28] MEDS ORDERED: SODIUM CHLORIDE 0.9% 100 ML ONE (17:18)
[2022-09-28] MEDS ORDERED: PHENYLEPHRINE HCL 1% 10 MG/ML VIAL ONE (17:18)
[2022-09-28] MEDS ORDERED: DEXTROSE 5% 250ML 250 ML IV ONE (17:23)
[2022-09-28] MEDS ORDERED: CLOPIDOGREL BISULFATE 75 MG TAB ONE (17:31)
[2022-09-28] MEDS ORDERED: ASPIRIN 325 MG TAB ONE (17:32)
[2022-09-28] MEDS: ONDANSETRON HCL 4 MG ORAL DISINTEGRATING TAB PO PRN ×2 (18:26→21:17)
[2022-09-28] MEDS ORDERED: AMIODARONE HCL 150 MG/100 ML BAG IV ONE (18:30)
[2022-09-28] MEDS ORDERED: AMIODARONE 900MG 500 ML IV SCH (18:55)
[2022-09-28] MEDS ORDERED: AMIODARONE HCL 150 MG in DEXTROSE 5% 100ML 100 ML IV SCH (19:00)
[2022-09-28] MEDS ORDERED: MAGNESIUM SULFATE 2GM/50ML 50 ML IV ONE (19:30)
[2022-09-28 19:39] LABS: BASOPHILS # (AUTO) 0.1 (0.0-0.1); BASOPHILS % 0.7 % (0.0-1.0); EOSINOPHILS # (AUTO) 0.3 (0.0-0.4); EOSINOPHILS % 2.2 % (0.0-6.0); HEMATOCRIT 31.8 % (38.2-49.6); HEMOGLOBIN 9.9 g/dL (14.0-18.0); LYMPHOCYTES # (AUTO) 4.1 (1.0-3.2); LYMPHOCYTES % 26.9 % (18.0-39.1); MEAN CORPUSCULAR HEMOGLOBIN 29.6 pg (28-32); MEAN CORPUSCULAR HGB CONC 31.1 g/dL (31-35); MEAN CORPUSCULAR VOLUME 95.2 fL (81-99); MONOCYTES # (AUTO) 1.3 (0.2-0.8); MONOCYTES % 8.7 % (4.4-11.3); NEUTROPHILS # (AUTO) 9.1 (2.1-6.9); NEUTROPHILS % 59.8 % (38.7-80.0); PLATELET COUNT 162 x10e3/uL (140-360); RED BLOOD COUNT 3.34 x10e6/uL (4.3-5.7); RED CELL DISTRIBUTION WIDTH 14.5 % (11.7-14.4)
[2022-09-28 20:00] LABS: ALBUMIN/GLOBULIN RATIO 0.8 (0.8-2.0); ANION GAP 19.8 mmol/L (8-16); CALCIUM 7.5 mg/dL (8.4-10.2); CREATININE, SERUM 1.1 mg/dL (0.72-1.25)
[2022-09-28 20:05] LABS: POTASSIUM 2.8 mmol/L (3.5-5.1)
[2022-09-28 20:17] LABS: INR 1.23
[2022-09-28 20:21] LABS: PARTIAL THROMBOPLASTIN TIME 169.4 seconds (23.8-35.5)
[2022-09-28 20:27] LABS: PROTHROMBIN TIME 16.1 seconds (11.9-14.5)
[2022-09-28] MEDS: EPINEPHRINE HCL 1:1000 1ML 4 MG in DEXTROSE 5% 250ML 250 ML IV SCH (20:35)
[2022-09-28] MEDS ORDERED: SODIUM BICARBONATE 8.4% INJ 50 ML SYR IV STA (20:36)
[2022-09-28] MEDS ORDERED: ATORVASTATIN 40 MG TAB PO SCH (21:00)
[2022-09-28] MEDS ORDERED: POTASSIUM CHLORIDE 20MEQ/100ML 200 ML IV ONE (21:00)
[2022-09-28] MEDS: SODIUM CHLORIDE 0.9% 1000ML 1,000 ML IV SCH ×2 (21:38→23:18)
[2022-09-28] MEDS ORDERED: MAGNESIUM SULF 1GRAM/DEXTROSE 100 ML IV PRN (21:45)
[2022-09-28] MEDS ORDERED: POTASSIUM CHLORIDE 20MEQ/100ML 200 ML IV PRN (21:45)
[2022-09-28] MEDS ORDERED: DEXTROSE 5%/0.45% SOD CHL 1,000 ML IV SCH (21:45)
[2022-09-28] MEDS: METOCLOPRAMIDE HCL 10 MG/2ML VIAL IV PRN (21:58)
[2022-09-28] MEDS: INSULIN REGULAR, HUMAN 3ML VL 100 UNIT in SODIUM CHLORIDE 0.9% 100 ML IV SCH ×2 (22:07)
[2022-09-28] MEDS: LIDOCAINE 2GM/D5W 500ML 500 ML IV SCH (22:56)
[2022-09-29] VITALS (74 sets, daily range): BP systolic 80–159; BP diastolic 61–111; PULSE 80–106; RESP 13–22; TEMP 97.7–100.5; O2SAT 84–100
[2022-09-29] MEDS ORDERED: KETAMINE HCL INJ 50 MG/ML 10 ML VIAL IV STA (00:21)
[2022-09-29] MEDS ORDERED: FENTANYL CITRATE/PF 100MCG/2 ML INJ IV STA (00:22)
[2022-09-29] MEDS ORDERED: KETAMINE HCL INJ 50 MG/ML 10 ML VIAL ONE (00:27)
[2022-09-29] MEDS ORDERED: FENTANYL CITRATE/PF 100MCG/2 ML INJ ONE (00:28)
[2022-09-29 00:37] LABS: ANION GAP 20.8 mmol/L (8-16); CALCIUM 7.3 mg/dL (8.4-10.2); CREATININE, SERUM 1.48 mg/dL (0.72-1.25); MAGNESIUM 1.9 MG/DL (1.3-2.1)
[2022-09-29 00:44] LABS: POTASSIUM 2.8 mmol/L (3.5-5.1)
[2022-09-29] MEDS ORDERED: SODIUM BICARBONATE 8.4% INJ 50 ML SYR IV STA (00:56)
[2022-09-29] MEDS ORDERED: POTASSIUM CHLORIDE 20MEQ/100ML 300 ML IV ONE (01:00)
[2022-09-29] MEDS ORDERED: MAGNESIUM SULFATE 2GM/50ML 50 ML IV ONE (01:00)
[2022-09-29] MEDS: SODIUM CHLORIDE 0.9% 1000ML 1,000 ML IV SCH ×2 (03:06→03:49)
[2022-09-29] MEDS ORDERED: POTASSIUM CHLORIDE 20 MEQ TAB CR PO STA (04:15)
[2022-09-29] MEDS: ACETAMINOPHEN 325 MG TAB PO PRN ×2 (04:26→22:42)
[2022-09-29] MEDS: INSULIN REGULAR, HUMAN 3ML VL 100 UNIT in SODIUM CHLORIDE 0.9% 100 ML IV SCH ×2 (04:41)
[2022-09-29 06:41] LABS: ANION GAP 22.3 mmol/L (8-16); CALCIUM 7.2 mg/dL (8.4-10.2); CREATININE, SERUM 1.53 mg/dL (0.72-1.25); MAGNESIUM 2.1 MG/DL (1.3-2.1)
[2022-09-29 06:46] LABS: POTASSIUM 7.3 mmol/L (3.5-5.1)
[2022-09-29] MEDS: EPINEPHRINE HCL 1:1000 1ML 4 MG in DEXTROSE 5% 250ML 250 ML IV SCH (07:08)
[2022-09-29] MEDS: CLOPIDOGREL BISULFATE 75 MG TAB PO SCH (08:44)
[2022-09-29] MEDS: ASPIRIN 81 MG CHEW TAB PO SCH (08:44)
[2022-09-29] MEDS: PANTOPRAZOLE SOD 40 MG TABEC PO SCH (08:44)
[2022-09-29] MEDS: CEFTRIAXONE 2 GM in SODIUM CHLORIDE 0.9% 100 ML IV SCH (08:44)
[2022-09-29 08:48] LABS: ABG PCO2 25 mmHg (35-45); ABG PH 7.38 (7.35-7.45); ABG PO2 262 mmHg (80-105)
[2022-09-29 08:49] LABS: ABG HCO3 15 mmol/L (22-26); ABG TCO2 16
[2022-09-29 08:52] LABS: BASOPHILS % 0.2 % (0.0-1.0); HEMATOCRIT 32.9 % (38.2-49.6); HEMOGLOBIN 10.9 g/dL (14.0-18.0); LYMPHOCYTES # (AUTO) 1.4 (1.0-3.2); LYMPHOCYTES % 10.7 % (18.0-39.1); MEAN CORPUSCULAR HEMOGLOBIN 29.9 pg (28-32); MEAN CORPUSCULAR HGB CONC 33.1 g/dL (31-35); MEAN CORPUSCULAR VOLUME 90.4 fL (81-99); MONOCYTES # (AUTO) 1.2 (0.2-0.8); MONOCYTES % 9.1 % (4.4-11.3); NEUTROPHILS # (AUTO) 10.1 (2.1-6.9); NEUTROPHILS % 79.2 % (38.7-80.0); PLATELET COUNT 200 x10e3/uL (140-360); RED BLOOD COUNT 3.64 x10e6/uL (4.3-5.7); RED CELL DISTRIBUTION WIDTH 14.6 % (11.7-14.4)
[2022-09-29] MEDS ORDERED: DEXTROSE 50% SYRINGE 50 ML IV PRN (09:00)
[2022-09-29] MEDS ORDERED: INSULIN REGULAR, HUMAN 3ML VL 100 UNIT in SODIUM CHLORIDE 0.9% 99 ML IV SCH ×2 (09:00)
[2022-09-29 09:03] LABS: ANION GAP 25.1 mmol/L (8-16); CALCIUM 7.6 mg/dL (8.4-10.2); CREATININE, SERUM 1.46 mg/dL (0.72-1.25); POTASSIUM 3.1 mmol/L (3.5-5.1)
[2022-09-29] MEDS: SODIUM CHLORIDE 0.9% IV SCH ×5 (09:24→23:10)
[2022-09-29] MEDS: EPINEPHRINE HCL IV SCH ×5 (09:24→23:10)
[2022-09-29] MEDS ORDERED: POTASSIUM CHLORIDE 20MEQ/100ML 100 ML IV ONE (09:45)
[2022-09-29 13:06] LABS: ANION GAP 15.4 mmol/L (8-16); CALCIUM 7.5 mg/dL (8.4-10.2); CREATININE, SERUM 1.24 mg/dL (0.72-1.25); POTASSIUM 3.4 mmol/L (3.5-5.1)
[2022-09-29] MEDS: HYDROXYZINE PAMOATE 25 MG CAP PO PRN ×2 (13:34→22:41)
[2022-09-29] MEDS: SODIUM BICARBONATE 650 MG TAB PO SCH ×2 (16:33→21:26)
[2022-09-29] MEDS: AMIODARONE HCL 200 MG TAB PO SCH ×2 (17:01→21:44)
[2022-09-29] MEDS: HEPARIN 25,000 UNIT/D5W 250ML 1,500 UNIT in DEXTROSE 5% 250ML 250 ML IV SCH (18:22)
[2022-09-29 18:48] LABS: ANION GAP 14.7 mmol/L (8-16); CALCIUM 7.4 mg/dL (8.4-10.2); CREATININE, SERUM 1.06 mg/dL (0.72-1.25); MAGNESIUM 1.9 MG/DL (1.3-2.1); POTASSIUM 3.7 mmol/L (3.5-5.1)
[2022-09-29] MEDS ORDERED: MAGNESIUM SULF 1GRAM/DEXTROSE 100 ML IV PRN (19:00)
[2022-09-29] MEDS ORDERED: POTASSIUM CHLORIDE 20MEQ/100ML 100 ML IV PRN (19:00)
[2022-09-29] MEDS ORDERED: POTASSIUM CHLORIDE 20MEQ/100ML 200 ML IV PRN (19:00)
[2022-09-29] MEDS ORDERED: MAGNESIUM SULF 1GRAM/DEXTROSE 100 ML IV ONE (19:00)
[2022-09-29] MEDS: POTASSIUM CHLORIDE 20MEQ/100ML 100 ML IV SCH ×2 (20:17→21:27)
[2022-09-29] MEDS ORDERED: INSULIN GLARGINE 100 UNITS/ML VIAL SQ SCH (21:00)
[2022-09-30] VITALS (94 sets, daily range): BP systolic 79–149; BP diastolic 53–134; PULSE 25–94; RESP 11–23; TEMP 97.9–98.9; O2SAT 86–100
[2022-09-30 01:14] LABS: ANION GAP 12.9 mmol/L (8-16); CALCIUM 7.5 mg/dL (8.4-10.2); MAGNESIUM 2.3 MG/DL (1.3-2.1)
[2022-09-30 01:18] LABS: POTASSIUM 4.9 mmol/L (3.5-5.1)
[2022-09-30] MEDS: SODIUM CHLORIDE 0.9% IV SCH ×7 (02:52→23:04)
[2022-09-30] MEDS: EPINEPHRINE HCL IV SCH ×7 (02:52→23:04)
[2022-09-30] MEDS: LIDOCAINE 2GM/D5W 500ML 500 ML IV SCH (04:30)
[2022-09-30] MEDS: AMIODARONE HCL 200 MG TAB PO SCH (05:41)
[2022-09-30 07:01] LABS: ANION GAP 14.3 mmol/L (8-16); CALCIUM 7.3 mg/dL (8.4-10.2); CREATININE, SERUM 0.99 mg/dL (0.72-1.25); MAGNESIUM 2.1 MG/DL (1.3-2.1); POTASSIUM 5.3 mmol/L (3.5-5.1)
[2022-09-30] MEDS: PANTOPRAZOLE SOD 40 MG TABEC PO SCH (07:30)
[2022-09-30] MEDS: METOCLOPRAMIDE HCL 10 MG/2ML VIAL IV PRN (07:40)
[2022-09-30] MEDS ORDERED: ATROPINE SULFATE 1 MG/ML VIAL ONE (08:21)
[2022-09-30] MEDS ORDERED: ALBUMIN 25% 25GM 100ML 100 ML ONE (08:23)
[2022-09-30] MEDS ORDERED: ALBUMIN 25% 25GM 100ML 0.25 GM/ML BTL IV ONE (08:45)
[2022-09-30] MEDS ORDERED: ATROPINE SULFATE 1 MG/ML VIAL IV ONE (08:45)
[2022-09-30] MEDS: SODIUM BICARBONATE 650 MG TAB PO SCH ×3 (09:00→20:28)
[2022-09-30] MEDS: CLOPIDOGREL BISULFATE 75 MG TAB PO SCH (09:06)
[2022-09-30] MEDS: ASPIRIN 81 MG CHEW TAB PO SCH (09:06)
[2022-09-30] MEDS: CEFTRIAXONE 2 GM in SODIUM CHLORIDE 0.9% 100 ML IV SCH (09:34)
[2022-09-30 10:43] LABS: ANION GAP 17.9 mmol/L (8-16); CALCIUM 7.4 mg/dL (8.4-10.2); CREATININE, SERUM 1.2 mg/dL (0.72-1.25); POTASSIUM 5.9 mmol/L (3.5-5.1)
[2022-09-30] MEDS: CALCIUM CHLORIDE 10% 1.36 MEQ/ML 10ML SYR IV ONE ×2 (11:12→11:18)
[2022-09-30] MEDS ORDERED: SODIUM BICARBONATE 8.4% INJ 50 ML SYR IV ONE (11:30)
[2022-09-30] MEDS ORDERED: FUROSEMIDE INJ 10 MG/ML 4 ML VIAL IV ONE (11:30)
[2022-09-30] MEDS ORDERED: DEXTROSE 5%/0.9% SOD CHL 1,000 ML IV ONE (12:00)
[2022-09-30] MEDS ORDERED: EPINEPHRINE HCL SYRINGE ONE (12:55)
[2022-09-30 12:57] LABS: ABG PCO2 28 mmHg (35-45); ABG PH 7.45 (7.35-7.45); ABG PO2 75 mmHg (80-105)
[2022-09-30 12:58] LABS: ABG HCO3 19 mmol/L (22-26); ABG TCO2 20
[2022-09-30] MEDS: HYDROXYZINE PAMOATE 25 MG CAP PO PRN ×2 (15:01→23:03)
[2022-09-30] MEDS ORDERED: LIDOCAINE 4% PATCH TP SCH (16:00)
[2022-09-30 16:29] LABS: ANION GAP 13.4 mmol/L (8-16); CALCIUM 7.8 mg/dL (8.4-10.2); CREATININE, SERUM 1.41 mg/dL (0.72-1.25); MAGNESIUM 2.1 MG/DL (1.3-2.1); POTASSIUM 5.4 mmol/L (3.5-5.1)
[2022-09-30] MEDS: HEPARIN 25,000 UNIT/D5W 250ML 1,500 UNIT in DEXTROSE 5% 250ML 250 ML IV SCH (20:28)
[2022-09-30] MEDS ORDERED: INSULIN GLARGINE 100 UNITS/ML VIAL SQ SCH (21:00)
[2022-09-30] MEDS ORDERED: DEXTROSE 5%/0.9% SOD CHL 1,000 ML IV SCH (22:00)
[2022-09-30 22:17] LABS: ANION GAP 14.1 mmol/L (8-16); CALCIUM 7.4 mg/dL (8.4-10.2); CREATININE, SERUM 1.63 mg/dL (0.72-1.25)
[2022-09-30 22:18] LABS: POTASSIUM 5.1 mmol/L (3.5-5.1)
[2022-10-01] VITALS (21 sets, daily range): BP systolic 69–194; BP diastolic 49–155; PULSE 55–128; RESP 18–29; TEMP 97.5; O2SAT 77–100
[2022-10-01] MEDS: EPINEPHRINE HCL IV SCH (02:48)
[2022-10-01] MEDS: SODIUM CHLORIDE 0.9% IV SCH (02:48)
[2022-10-01] MEDS ORDERED: SODIUM BICARBONATE 8.4% INJ 50 ML SYR ONE (07:58)
[2022-10-01] MEDS ORDERED: EPINEPHRINE HCL 1:1000 1ML 1 MG/ML AMP ONE (07:58)
[2022-10-01] MEDS ORDERED: SODIUM CHLORIDE FLUSH 10 ML SYR ONE (07:58)
== END 2022-10-01 07:15 | disposition expired | DRG 981 ==
LOC: EDBD → MERGE 15:18 → ICU 15:18 → UNMERGE 15:18 → MED/SURG2 09-26 20:02 → ICU 09-28 17:30
PROVIDERS: ADMIT Internal Medicine; ATTEND Internal Medicine
PROC: 5A0935A Assistance with Respiratory Ventilation, Less than 24 Consecutive Hours, High Flow/Velocity Cannula (ICD-10-PCS; principal; 2022-09-28)
PROC: 027035Z Dilation of Coronary Artery, One Artery with Two Drug-eluting Intraluminal Devices, Percutaneous Approach (ICD-10-PCS; 2022-09-28)
PROC: 4A023N7 Measurement of Cardiac Sampling and Pressure, Left Heart, Percutaneous Approach (ICD-10-PCS; 2022-09-28)
PROC: B2111ZZ Fluoroscopy of Multiple Coronary Arteries using Low Osmolar Contrast (ICD-10-PCS; 2022-09-28)
DX: E11.10 Type 2 diabetes mellitus with ketoacidosis without coma (principal); I21.19 ST elevation (STEMI) myocardial infarction involving other coronary artery of inferior wall; K72.00 Acute and subacute hepatic failure without coma; I50.21 Acute systolic (congestive) heart failure; I82.622 Acute embolism and thrombosis of deep veins of left upper extremity; M86.9 Osteomyelitis, unspecified; N17.9 Acute kidney failure, unspecified; L03.116 Cellulitis of left lower limb; I47.20 Ventricular tachycardia, unspecified; I82.612 Acute embolism and thrombosis of superficial veins of left upper extremity; I46.9 Cardiac arrest, cause unspecified; R57.0 Cardiogenic shock; I95.9 Hypotension, unspecified; D50.9 Iron deficiency anemia, unspecified; E11.42 Type 2 diabetes mellitus with diabetic polyneuropathy; E11.69 Type 2 diabetes mellitus with other specified complication; E11.621 Type 2 diabetes mellitus with foot ulcer; L97.529 Non-pressure chronic ulcer of other part of left foot with unspecified severity; E87.5 Hyperkalemia; I25.10 Atherosclerotic heart disease of native coronary artery without angina pectoris; R06.03 Acute respiratory distress; E78.2 Mixed hyperlipidemia; E11.22 Type 2 diabetes mellitus with diabetic chronic kidney disease; N18.9 Chronic kidney disease, unspecified; Z79.4 Long term (current) use of insulin; Z79.01 Long term (current) use of anticoagulants; Z79.82 Long term (current) use of aspirin
CPT/HCPCS: 31500; 36415; 36600; 71045; 80048; 80053; 80061; 80176; 82550; 82805; 82948; 83036; 83735; 84100; 84132; 84439; 84443; 84484; 85025; 85610; 85730; 86376; 92920; 92941; 92950; 93005; 93306; 93458; 93970; 94660; 94799; 96372; 97605; 97606; 99252; C1725; C1874; C1887; J0171; J0461; J0696; J1644; J1650; J1815; J1940; J2001; J2250; J2370; J2405; J2765; J3475; J3480; J7030; J7042; J7050; J7070; P9047; Q0162; Q0177; Q9967